=== PATIENT | female | born 1940 | race Caucasian/White ===

== ENCOUNTER 2018-06-17 07:34 | Observation (INO) | payer OTHER, MEDICAID ==
[~2018-06-17 07:34] MED LIST: CEFAZOLIN 1 GM INJ; DEXAMETHASONE 4 MG/ML 5 ML INJ; ONDANSETRON 4 MG INJ; SEVOFLURANE 15 MIN
[2018-06-17] MEDS ORDERED: PROPOFOL 20 ML (10:11)
[2018-06-17] MEDS ORDERED: ROCURONIUM 50 MG INJ (10:11)
[2018-06-17] MEDS ORDERED: GLYCOPYRROLATE 0.4 MG INJ (10:11)
[2018-06-17] MEDS ORDERED: LIDOCAINE 2% (SDV) 5 ML INJ (10:11)
[2018-06-17] MEDS ORDERED: MIDAZOLAM 1 MG/ML 2 ML INJ (10:11)
[2018-06-17] MEDS ORDERED: NEOSTIGMINE 3 MG/3 ML SYRINGE (10:11)
[2018-06-17] MEDS ORDERED: FENTAnyl 50 MCG/ML VIAL (10:12)
[2018-06-17] MEDS: ISOSULFAN BLUE 1% 5 ML INJ SC (12:26)
[2018-06-17] MEDS ORDERED: SUGAMMADEX SODIUM 200 MG/2 ML VIAL IV (12:51)
[2018-06-17] MEDS ORDERED: morphine 2 MG INJ IV (13:30)
[2018-06-17] MEDS ORDERED: ACETAMINOPHEN 1000MG/100ML IV 100 ML IVPB (13:30)
[2018-06-17] MEDS ORDERED: ONDANSETRON 4 MG INJ IV (13:30)
[2018-06-17] MEDS: FENTAnyl 50 MCG/ML VIAL IV ×2 (14:09→14:17)
[2018-06-17] MEDS: ONDANSETRON 4 MG INJ IV (14:09)
[2018-06-17] MEDS ORDERED: HYDROmorphONE 1 MG/5 ML IV SYRINGE IV ×3 (14:30)
[2018-06-17] MEDS ORDERED: FENTAnyl 50 MCG/ML VIAL IV (14:30)
[2018-06-17] MEDS ORDERED: ALBUTEROL 0.083% (NEB) 2.5 MG/3 ML AMP HHN (14:30)
[2018-06-17] MEDS ORDERED: hydrALAzine 20 MG INJ IV (14:30)
[2018-06-17] MEDS ORDERED: LEVALBUTEROL (NEB) 0.63 MG/3 ML AMP HHN (14:30)
[2018-06-17] MEDS ORDERED: MEPERIDINE 25 MG INJ IV (14:30)
[2018-06-17] MEDS ORDERED: OXYCODONE/ACETAMINOPHEN (5/325) TAB PO ×2 (14:30)
[2018-06-17] MEDS ORDERED: LABETALOL HCL 20MG INJ IV (14:30)
[2018-06-17] MEDS ORDERED: EPHEDrine SULFATE 50 MG/5 ML SYG IV (14:30)
[2018-06-17] MEDS: D5W-0.45 NACL + KCL 20 MEQ 1,000 ML IV ×2 (15:29→22:10)
[2018-06-17] MEDS ORDERED: morphine 4 MG/ML VIAL (20:58)
[2018-06-17] MEDS: morphine 4 MG/ML VIAL IV (22:19)
[2018-06-18] MEDS: D5W-0.45 NACL + KCL 20 MEQ 1,000 ML IV ×2 (06:23→13:10)
[2018-06-18] MEDS: morphine 4 MG/ML VIAL IV (10:41)
== END 2018-06-18 14:24 | disposition home or self-care (01) ==
LOC: SDS 07:34 → REC 13:10 → PP2 15:02
PROVIDERS: Surgery Surgical Oncology
DX: D05.12 Intraductal carcinoma in situ of left breast (principal); I10 Essential (primary) hypertension; E78.5 Hyperlipidemia, unspecified; E11.9 Type 2 diabetes mellitus without complications
CPT/HCPCS: 19301; 82962; 88307; 88331; 88341; 88342; 99217; G0378